=== PATIENT | female | born 2000 | race African-American/Black ===

== ENCOUNTER 2021-05-27 10:46 | Inpatient (IN) | payer OTHER, SELFPAY ==
[2021-05-27] VITALS (171 sets, daily range): BP systolic 86–171; BP diastolic 29–115; PULSE 25–139; RESP 16–18; TEMP 36.6–37.2; O2SAT 76–100; BMI 26.0
--- NOTE | 2021-05-27 11:15 | WPDHPUPDATE1 ---
History and Physical Update Update Date/Time: 05/27/21 11:13 History and Physical has been reviewed, including an updated exam of the patient. There are NO changes in the patient's condition. Risks, benefits, and alternatives have been discussed and questions answered. Patient agrees to proceed with procedure. 21. yo primigravida F presents Spontaneous rupture membranes and spontaneous onset of labor care began September 2020 8 visits complicated by Chlamydia and gonorrhea herpes and group B strep she has been on acyclovir however her last visit was April 28 2021. Ultrasound normal. 1 hour glucose normal. complicated by Sexually transmitted diseases CT, NG,HSV, GBS, smoking, and TV. She is being admitted and routine orders with antibiotic prophylaxis for GBS started an epidural being administered. Yes to circumcise ,breast feeding method,[employer]ounder Angelina MELENDEZ for PPBC,yes to epidural . She understands her condition procedure and risks and agrees to proceed she understands the maternal or indications for delivery with risk involved including but not limited to bleeding infection injury to bladder bowel baby pelvic vessels DVT pneumonia wound infections UTI risk of anesthesia risk of hemorrhage
[2021-05-27 11:44] LABS: Basophils Percent Auto 0.4 % (0.2-1.2); Eosinophils Percent Auto 0.8 % (0-4.4); Hematocrit 31.9 % (37.0-47.0); Hemoglobin 10.1 g/dL (12.0-15.0); Immature Granulocyte Absolute 0.03 K/mm3 (0.00-0.031); Immature Granulocyte Percent A 0.6 % (0-0.5); Lymphocytes Absolute Auto 1.21 K/mm3 (0.9-3.2); Lymphocytes Percent Auto 23.1 % (18.3-44.2); Mean Corpuscular HGB Conc 31.7 g/dl (32-36); Mean Corpuscular Hemoglobin 25.3 pg (26-34); Mean Corpuscular Volume 79.9 fl (80-100); Mean Platelet Volume 9.6 fl (7.4-10.4); Monocytes Absolute Auto 0.6 K/mm3 (0.1-0.6); Monocytes Percent Auto 11.5 % (2.6-8.5); Neutrophils Absolute Auto 3.3 K/mm3 (1.3-6.7); Neutrophils Percent Auto 63.6 % (45.5-73.1); Platelet Count Result 237 k/mm3 (150-375); Red Blood Count 3.99 M/mm3 (4.2-5.4); Red Cell Distribution Width 16.9 % (11.5-14.5); White Blood Count 5.2 K/mm3 (4.5-10.0)
[2021-05-27] MEDS: AMPICILLIN 2 GM/NS 100 ML 2 GM/100 ML BAG IVPB (11:47)
[2021-05-27] MEDS: LACTATED RINGERS 1,000 ML 125 ML IV CONT ×2 (11:48→16:30)
--- NOTE | 2021-05-27 12:12 | LDADM ---
This patient, Yumiko Bautista, was admitted to Labor/Delivery/Recovery 107 on 05/27/21 at 10:47. Plans for labor, pain management and were discussed with patient. Patient/family oriented to hospital policies and general routines including ID bracelet, bed and alarms, visiting hours, pain management, procedures, bathroom and other care routines, personal items, smoking policy, room service/diet and guest tray routines, security routines, and visiting hours. Patient/Family are encouraged to report perceived risks to care and to ask questions if they do not understand what they are told or what they should do. See OBIX for further documentation.
[2021-05-27 12:38] LABS: HIV 1/2 Ab P24 Ag Result Negative (Negative)
[2021-05-27 15:31] LABS: Amphetamine Screen Urine Negative (Negative); Barbiturate Screen Urine Negative (Negative); Benzodiazepines Screen Urine Negative (Negative); Cannabinoid Screen Urine Positive (Negative); Cocaine Screen Urine Negative (Negative); Methadone Screen Urine Negative (Negative); Opiate Screen Urine Negative (Negative); Phencyclidine Screen Urine Negative (Negative)
[2021-05-27] MEDS: AMPICILLIN 1 GM/NS 50 ML 1 GM/50 ML BAG IVPB ×2 (15:42→19:34)
[2021-05-27] MEDS: OXYTOCIN 30 UNITS/NS 500 ML 30 UNITS/500 ML BAG 6 UNITS IV CONT (18:34)
--- NOTE | 2021-05-27 21:03 | P.PCNOB_ITS ---
OB - Delivery Note Procedure Route of delivery: Episiotomy description: None Laceration Description: Vaginal - 1st Degree Delivery repair: chromic Specimen: No Quantitative Blood Loss (ml): 350 Anesthesia type: Epidural Disposition: floor Narrative: Patient prepped and draped in usual manner this procedure. Maternal expulsive efforts readily delivered vertex with nuchal cord x2 noted and reduced. Rest of baby was delivered cord was clamped and cut placenta delivered spontaneously. Uterus was well contracted. Two small vaginal lacerations were readily rendered hemostatic using a ldoevg-[id number] Dawdy chromic suture. Uterus again well contracted minimal bleeding at this point the procedure was considered terminated. [place] Baby Weeks of gestation at delivery: 38 gender: Male Weight (pounds): 6 Weight (ounces): 7 score one minute: 9 score five minutes: 9
[2021-05-27] MEDS: OXYTOCIN 30 UNITS/NS 500 ML 30 UNITS/500 ML BAG 125 UNITS IV CONT (21:53)
--- NOTE | 2021-05-27 23:30 | OBPPTRN ---
Patient transferred to post room #279 via wheelchair. Support person present. Oriented to unit, room, information board, rooming in, admission packet and security measures. Patient verbalizes understanding.
[2021-05-28] MEDS: ACETAMINOPHEN 325 MG TABLET 650 MG PO (01:19)
[2021-05-28] MEDS: IBUPROFEN 600 MG TABLET PO ×3 (01:20→16:35)
[2021-05-28 04:00] VITALS: BP 125/71; PULSE 69; RESP 16; TEMP 36.8; O2SAT 98
[2021-05-28 05:19] LABS: Hematocrit 26.9 % (37.0-47.0); Hemoglobin 8.6 g/dL (12.0-15.0)
--- NOTE | 2021-05-28 07:28 | PM.OBDSVD ---
DS: Admitting Diagnosis Admitting Diagnosis OB - DS: Summary OB Procedures : None OB Procedures Intrapartum: Spontaneous Vag Delivery OB Procedures: : None Time Spent with Patient Time attestation: Total time spent providing and/or coordinating discharge services: DS: Data Data Completed and Pending Labs on day of discharge: Labs from last 24 hours 05/28/21 05/27/21 05/27/21 03:54 15:05 11:37 WBC RBC Hgb 8.6 L Hct 26.9 L MCV MCH MCHC RDW Plt Count MPV Immature Gran % (Auto) Neut % (Auto) Lymph % (Auto) Levy % (Auto) Eos % (Auto) Baso % (Auto) Lymph # (Auto) Levy # (Auto) Eos # (Auto) Baso # (Auto) Abs Immat Gran (auto) Absolute Neuts (auto) Absolute Nucleated RBC Nucleated RBC % Urine Opiates Screen Negative Urine Methadone Screen Negative Ur Barbiturates Screen Negative Ur Phencyclidine Scrn Negative Ur Amphetamine Screen Negative U Benzodiazepines Scrn Negative Urine Cocaine Screen Negative U Cannabinoids Screen Positive A RPR HIV 1&2 Ab/P24 Ag 4thGn Blood Type AB Positive Antibody Screen Negative 05/27/21 05/27/21 05/27/21 11:37 11:37 11:37 WBC 5.2 RBC 3.99 L Hgb 10.1 L Hct 31.9 L MCV 79.9 L MCH 25.3 L MCHC 31.7 L RDW 16.9 H Plt Count 237 MPV 9.6 Immature Gran % (Auto) 0.6 H Neut % (Auto) 63.6 Lymph % (Auto) 23.1 Levy % (Auto) 11.5 H Eos % (Auto) 0.8 Baso % (Auto) 0.4 Lymph # (Auto) 1.21 Levy # (Auto) 0.6 Eos # (Auto) 0.0 Baso # (Auto) 0.0 Abs Immat Gran (auto) 0.03 Absolute Neuts (auto) 3.3 Absolute Nucleated RBC 0.0 Nucleated RBC % 0.0 Urine Opiates Screen Urine Methadone Screen Ur Barbiturates Screen Ur Phencyclidine Scrn Ur Amphetamine Screen U Benzodiazepines Scrn Urine Cocaine Screen U Cannabinoids Screen RPR Pending HIV 1&2 Ab/P24 Ag 4thGn Negative Blood Type Antibody Screen Discharge Plan Discharge Discharging Clinician: Hurford,Collin M. Anticipated Discharge Date/Time: 05/29/21 07:28 Patient Disposition: Home, Self-Care Activity: as tolerated Diet: as tolerated Patient Instructions: Antibiotic Form Stand Alone Forms: General Discharge Information Follow-up/Referrals: Tanvir Willard MD [Physician] - 3 Weeks Discharge Medications: New ibuprofen 600 mg Tablet 600 mg PO Q6H PRN (Reason: Cramping) Qty: 30 RF: 0 Discontinued acyclovir 800 mg tablet 800 mg PO DIRECTED RF: 0 Date of admission: 05/27/21 10:47 Primary Care Provider: PHYSICIAN,LOAN PROCESSOR Admitting Provider: Tanvir Willard Attending physician on admission: Tanvir Willard Condition: Stable
[2021-05-28 07:55] VITALS: BP 137/79; PULSE 62; RESP 18; TEMP 36.6; O2SAT 99
--- NOTE | 2021-05-28 08:09 | WPDANLDPN2 ---
Anes-Prog Note L&D Date/Time: 05/28/21 08:09 Comfortable throughout: labor and delivery Neuraxial method: epidural Epidural/Spinal procedure site: clean & non-tender Neuro status: Neuro function grossly intact. Cardiovascular status: normal Respiratory status: normal Airway patency: baseline Mental status: baseline Post-Op hydration status: normal Vital Signs: Last Vital Signs Temp 36.8 C 05/28/21 04:00 Pulse 69 05/28/21 04:00 Resp 16 05/28/21 04:00 BP 125/71 05/28/21 04:00 Pulse Ox 98 05/28/21 04:00 Pain score (VAS): 0 I/O: Intake & Output 05/27/21 05/28/21 05/28/21 23:59 07:59 15:59 Intake Total 2300 500 Output Total 2275 Balance 25 500 Post-procedural complaints: none Patient feedback: Patient satisfied with anesthetic care.
--- NOTE | 2021-05-28 09:01 | PM.IMHP ---
H&P: [facility] History of Present Illness Date/Time: 05/27/21 11:01 21. yo primigravida F presents Spontaneous rupture membranes and spontaneous onset of labor care began September 2020 8 visits complicated by Chlamydia and gonorrhea herpes and group B strep she has been on acyclovir however her last visit was April 28 2021. noninvasive test normal. Gender male. Ultrasound normal. 1 hour glucose normal. complicated by Sexually transmitted diseases CT, NG,HSV, GBS, smoking, and TV. She is being admitted and routine orders with antibiotic prophylaxis for GBS started an epidural being administered. Yes to circumcise ,breast feeding method,Clipman Angelina MELENDEZ for PPBC,yes to epidural . She understands her condition procedure and risks and agrees to proceed she understands the maternal or indications for delivery with risk involved including but not limited to bleeding infection injury to bladder bowel baby pelvic vessels DVT pneumonia wound infections UTI risk of anesthesia risk of hemorrhage Chief Complaint: term , spontaneous rupture membranes, spontaneous onset of labor Review of Systems Review of Systems: All systems reviewed & are unremarkable except as noted in HPI and below Constitutional: Constitutional: Reports no additional constitutional complaints Eyes: Eyes: Reports no additional eye complaints ENT: Reports system reviewed and no additional complaints, except as documented Cardiovascular: Cardiovascular: Reports no additional cardiovascular complaints Respiratory: Respiratory: Reports no additional respiratory complaints Gastrointestinal: Gastrointestinal: Reports no additional gastrointestinal complaints Genitourinary: Genitourinary: Reports no additional female genitourinary complaints Musculoskeletal: Musculoskeletal: Reports no additional musculoskeletal complaints Integumentary/Breasts: Skin/Breast: Reports system reviewed and no additional complaints, except as docu Neurologic: Reports system reviewed and no additional complaints, except as documented Psychiatric: Psychiatric: Reports no additional psychiatric complaints Endocrine: Endocrine: Reports no additional endocrine complaints Hematologic/Lymphatic: Hematologic/Lymphatic: Reports no additional hematologic/lymphatic complaints Allergic/Immunologic: Allergic/Immunologic: Reports no additional allergic/immunologic complaints [facility] Past Medical History Medical History (Updated 05/28/21 @ 09:23 by Tanvir Willard MD) Anemia Asthma Bacterial vaginosis Candidiasis of vagina Chlamydia Genital herpes simplex Group B streptococcal carriage complicating History of sexually transmitted disease Neisseria gonorrheae Smoker Trichomonas infection Social History Social History (Updated 05/28/21 @ 09:20 by Tanvir Willard MD) Smoking status: Current every day smoker Tobacco type: cigarettes Second hand tobacco smoke exposure: Yes Substance use: current Substance use type: marijuana Living arrangements: with family Occupation/Education: unemployed Gender identity (if verbalized by the patient): Female Sexual Orientation (if Verbalized by the Patient): Straight or Heterosexual Spiritual care concerns: No Agree to blood products: Yes Meds Home Medications and Allergies Home Medications Medication Instructions Recorded Confirmed Type acyclovir 800 mg PO DIRECTED 05/27/21 05/27/21 History Allergies Allergy/AdvReac Type Severity Reaction Status Date / Time No Known Allergies Allergy Verified 05/27/21 11:26 Vital Signs Vital Signs - 24 hr 05/27/21 11:00 05/27/21 11:51 05/27/21 12:01 Temperature 98.3 F Pulse Rate 66 59 L Respiratory Rate Blood Pressure 153/81 H 156/98 H Pulse Oximetry 05/27/21 12:30 05/27/21 12:31 05/27/21 12:42 Temperature 98.1 F Pulse Rate 59 L Respiratory Rate B
[2021-05-28] MEDS: POLYSACCHARIDE IRON COMPLEX 150 MG CAPSULE PO ×2 (10:38→16:35)
[2021-05-28] MEDS: MULTIVIT/MIN/PREN/FOL AC/IRON TABLET 1 TAB PO (10:38)
[2021-05-28] MEDS: DOCUSATE SODIUM 100 MG CAPSULE PO ×2 (10:39→16:35)
[2021-05-28 11:39] LABS: Rapid Plasma Reagin Non-Reactive (NonReactive)
[2021-05-28 12:05] VITALS: BP 135/60; PULSE 67; RESP 18; TEMP 36.3; O2SAT 100
[2021-05-28] MEDS: cefTRIAXone 250 MG VIAL 500 MG IM (12:30)
[2021-05-28] MEDS: AZITHROMYCIN 250 MG TABLET 1000 MG PO (12:32)
[2021-05-28] MEDS: FLUCONAZOLE 150 MG TABLET PO (12:33)
--- NOTE | 2021-05-28 13:08 | PCCCNOTE ---
Care Coordination met with pt. this morning to discuss discharge planning. Pt.'s current D/C plan is to return home with her mother and step father. Pt. states she has local family support and confirms that she has everything she needs to safely bring baby home. Pt. denies any prior DCFS cases. She did test positive for Marijuana at time of admission, baby's meconium is pending. Pt. informed CC that she used Marijuana throughout her to assist with her nausea and lack of appetite. CC has reported the drug use to [facility] online, pt.'s case ID number is [id number]. They will take it as information. No further need for CC services at this time.
--- NOTE | 2021-05-28 15:14 | P.PNOB_ITS ---
OB - PN: Subj Subjective Date/time seen: 05/28/21 15:14 Patient comments: no complaints and pain well controlled baby status: doing well [place] feeding status: breast and bottle feeding OB - PN: Obj Data Labs CBC & Chem 7: 05/28/21 03:54 Labs: Laboratory Results - last 24 hr 05/27/21 05/27/21 05/28/21 11:37 15:05 03:54 Hgb 8.6 L Hct 26.9 L Urine Opiates Screen Negative Urine Methadone Screen Negative Ur Barbiturates Screen Negative Ur Phencyclidine Scrn Negative Ur Amphetamine Screen Negative U Benzodiazepines Scrn Negative Urine Cocaine Screen Negative U Cannabinoids Screen Positive A RPR Non-reactive OB - PN A/P Assessment and Plan (1) Term delivered: Code(s): O80 - Encounter for full-term uncomplicated delivery Status: Acute Plan day: 1 Plan: routine care, discharge home and follow up 6 weeks Time Spent With Patient Time: Total time spent is greater than 50% in coordination of care (as documented) at patient's floor/unit and/or counseling patient: Time with patient: less than 15 minutes Review of Systems Review of Systems: All systems reviewed & are unremarkable except as noted in HPI and below Exam Const: General: cooperative, healthy appearing, comfortable, no acute distress, well developed, awake and Physically active Nutritional Appearance: average body habitus Orientation/consciousness: patient oriented x3 Limitations: no limitations HENMT: Head: normal to inspection Eyes: General: appearance normal, both eyes and all related structures Neck: Neck: normal visual inspection Chest: Chest palpation & inspection: normal inspection of the chest Resp: Effort & Inspection: normal respiratory effort Auscultation: clear to auscultation bilaterally Cardio: Rate: regular rate Rhythm: regular rhythm GI: Inspection: normal to inspection GI Palp: Yes Soft to palpation Auscultation: normal bowel sounds : External Female Exam: normal external appearance Back/Spine/Pelvis: Back: no CVA tenderness Skin: General skin exam: normal color Neuro: General: patient oriented x3, gait normal, tone normal, moves all extremities and Normal light touch and pain sensation Extrem: General: normal to inspection and full ROM Psych: Appearance: grossly normal Mental Status: mental status grossly normal Speech and movement: Normal speech and movement present Affect: n ormal affect Attitude: cooperative Thought process: Normal thought process present Thought content: Yes Normal thought content present Insight: Good insight present (Psych) Judgement: Good judgement present (Psych)
[2021-05-28 16:00] VITALS: BP 137/85; PULSE 63; RESP 16; TEMP 36.3; O2SAT 100
[2021-05-28 20:00] VITALS: BP 114/69; PULSE 64; RESP 16; TEMP 36.7; O2SAT 99
[2021-05-28] MEDS: metroNIDAZOLE 70 GM VAG GEL.W.APPL 1 APPFUL VAGINAL (20:41)
--- NOTE | 2021-05-29 08:00 | PC.NURSE ---
PT introductions made and plan of care discussed per post , pain management, bottle feeding, daily care activities and pending discharge to home. PT verbalized understanding of such care. PT received instructions per one to one and demonstration and mom baby care guide book through out this shift. PT only recipient of instructions and no barriers to learning identified.
[2021-05-29] MEDS: DOCUSATE SODIUM 100 MG CAPSULE PO (08:48)
[2021-05-29 08:49] VITALS: BP 122/71; PULSE 62; RESP 18; TEMP 36.6; O2SAT 100
[2021-05-29] MEDS: IBUPROFEN 600 MG TABLET PO (08:49)
[2021-05-29] MEDS: MULTIVIT/MIN/PREN/FOL AC/IRON TABLET 1 TAB PO (08:49)
[2021-05-29] MEDS: POLYSACCHARIDE IRON COMPLEX 150 MG CAPSULE PO (08:49)
--- NOTE | 2021-05-29 09:02 | PM.OBDSVD ---
DS: Admitting Diagnosis Admitting Diagnosis (1) Term : Code(s): Z34.90 - Encounter for supervision of normal , unspecified, unspecified trimester Status: Acute (2) Spontaneous rupture of membranes: Status: Acute (3) Spontaneous onset of labor: Status: Acute (4) Group B streptococcal carriage complicating : Code(s): O99.820 - Streptococcus B carrier state complicating Status: Acute (5) Genital herpes simplex: Code(s): A60.00 - Herpesviral infection of urogenital system, unspecified Status: Acute (6) Anemia: Code(s): D64.9 - Anemia, unspecified Status: Acute (7) History of sexually transmitted disease: Code(s): Z86.19 - Personal history of other infectious and parasitic diseases Status: Acute (8) Smoker: Code(s): F17.200 - Nicotine dependence, unspecified, uncomplicated Status: Acute DS: Discharge Diagnosis Discharge Diagnosis (1) Term delivered: Code(s): O80 - Encounter for full-term uncomplicated delivery Status: Acute (2) Spontaneous rupture of membranes: Status: Acute (3) Spontaneous onset of labor: Status: Acute (4) History of sexually transmitted disease: Code(s): Z86.19 - Personal history of other infectious and parasitic diseases Status: Acute (5) Group B streptococcal carriage complicating : Code(s): O99.820 - Streptococcus B carrier state complicating Status: Acute (6) Smoker: Code(s): F17.200 - Nicotine dependence, unspecified, uncomplicated Status: Acute (7) Anemia: Code(s): D64.9 - Anemia, unspecified Status: Acute (8) Genital herpes simplex: Code(s): A60.00 - Herpesviral infection of urogenital system, unspecified Status: Acute OB - DS: Summary Hospital Course Time spent discussing smoking cessation with patient: 3 to 10 minutes OB Procedures : Ultrasound OB Procedures Intrapartum: Spontaneous Vag Delivery OB Procedures: : None Peripartum Data Delivery Method: Natural Vaginal Laceration Description: None Episiotomy description: None complications: none 1: Gender: Male Disposition of : home Status at Discharge Cognitive/behavioral status at discharge: normal Functional status at discharge: independent ambulation Overall status at discharge: patient is back to baseline Time Spent with Patient Time attestation: Total time spent providing and/or coordinating discharge services: Time spent: Less than 30 minutes Exam Const: General: cooperative, healthy appearing, comfortable, no acute distress, well developed, alert, awake and Physically active Nutritional Appearance: average body habitus Orientation/consciousness: patient oriented x3 Limitations: no limitations HENMT: Head: normal to inspection Eyes: General: appearance normal, both eyes and all related structures Neck: Neck: normal visual inspection Chest: Chest palpation & inspection: normal inspection of the chest Resp: Effort & Inspection: normal respiratory effort Auscultation: clear to auscultation bilaterally Cardio: Rate: regular rate Rhythm: regular rhythm GI: Inspection: normal to inspection GI Palp: Yes Soft to palpation Auscultation: normal bowel sounds : External Female Exam: normal external appearance Bimanual exam- vagina & uterus: non-tender Back/Spine/Pelvis: Back: no CVA tenderness Skin: General skin exam: normal color Neuro: General: patient oriented x3, gait normal, tone normal and moves all extremities Extrem: General: normal to inspection and full ROM Psych: Appearance: grossly normal Mental Status: mental status grossly normal Speech and movement: Normal speech and movement present Affect: normal affect Attitude: cooperative Thought process: Normal thought process present Thought content: Yes No
--- NOTE | 2021-05-29 11:00 | PC.NURSE ---
PT received discharge instructions per protocol and verbalized understanding of such care.
--- NOTE | 2021-05-29 11:30 | PC.NURSE ---
PT discharged to home ambulatory accompanied by infant and taken to waiting car. Follow up appts confirmed
--- NOTE | 2021-06-02 12:16 | P.DS_ITS ---
DS: Admitting Diagnosis Admitting Diagnosis OB - DS: Summary OB Procedures : None OB Procedures Intrapartum: Spontaneous Vag Delivery OB Procedures: : None Time Spent with Patient Time attestation: Total time spent providing and/or coordinating discharge services: Discharge Plan Discharge Attending physician on discharge: Tanvir Willard Discharging Clinician: Tanvir Willard Anticipated Discharge Date/Time: 05/29/21 07:28 Patient Disposition: Home, Self-Care Activity: unlimited, may drive after 2 weeks and as tolerated Diet: as tolerated and regular Wound Care Instructions: follow printed instructions Discharge Instructions: Education: Mom and Baby Guide Given to: Mother Follow-Up: Call your delivering provider's office for an appointment to be seen in: 3 weeks Mom and baby should come to the [facility] for the follow-up appointment. Appointment Date/Time: May 31, 2021 at 9:00 am What to expect at your follow-up visit: Blood Pressure Check Call [phone] if you are unable to keep your appointment time. BREAST CARE: * Wear a snug supportive bra. * For engorgement discomfort: Bottle Feeding: * May apply ice packs PERINEAL CARE: * Until bleeding stops, use your tra bottle after urinating * Change your pad frequently throughout the day * You may take sitz baths several times a day (fill your bathtub with warm water and soak for 20 minutes.) Do NOT bathe in the water * No tub baths until seen by your physician - You may shower ACTIVITY: * Rest as much as possible. * Do not exercise or lift anything heavier than your baby (such as laundry or other children.) * Avoid stairs or driving as much as possible. * Do not put anything into the vagina. No douching, tampons, or sexual activity until seen by physician. NOTIFY PHYSICIAN IF YOU HAVE ANY QUESTIONS OR IF ANY OF THE FOLLOWING SYMPTOMS OCCUR: * If your perineum becomes red, swollen, or more painful than what you have experienced in the hospital. * If your vaginal bleeding becomes foul smelling. * If your vaginal bleeding becomes more heavy than a period or if your bleeding changes from pink to bright red. However, you may pass an occasional walnut-si zed clot once or twice for the first week . * If you experience a sharp, shooting pain in you calves. * If you discover a hard, reddened area on your breast or if you experience flu- like symptoms. * If you have a fever of 100.4 or greater DIET: * Eat regular, well-balanced meals. * Drink plenty of fluids daily. If , drink to thirst. Patient Instructions: Antibiotic Form Stand Alone Forms: General Discharge Information Follow-up/Referrals: Tanvir Willard MD [Physician] - 3 Weeks Discharge Medications: New ibuprofen 600 mg Tablet 600 mg PO Q6H PRN (Reason: Cramping) Qty: 30 RF: 0 Continued acyclovir 800 mg tablet 800 mg PO DIRECTED RF: 0 Date of admission: 05/27/21 10:47 Primary Care Provider: PHYSICIAN,[employer] SKILLED MAINTENANCE SUPERVISOR Admitting Provider: Tanvir Willard Attending physician on admission: Collin Machuca Condition: Stable
== END 2021-05-29 11:30 | disposition home or self-care (01) | DRG 560 ==
LOC: ANHLDR 11:07 → ANHOB2 05-28 07:28 → ANHLDR 05-31 11:47 → ANHOB2 05-31 11:47
PROVIDERS: Admitting Provider Obstetrics & Gynecology; Visit Provider Obstetrics & Gynecology
DX: O99.824 Streptococcus B carrier state complicating childbirth (principal); Z37.0 Single live birth; Z3A.38 38 weeks gestation of pregnancy; O70.0 First degree perineal laceration during delivery; O69.81X0 Labor and delivery complicated by cord around neck, without compression, not applicable or unspecified; O98.32 Other infections with a predominantly sexual mode of transmission complicating childbirth; A56.8 Sexually transmitted chlamydial infection of other sites; O98.22 Gonorrhea complicating childbirth; A60.09 Herpesviral infection of other urogenital tract; O99.02 Anemia complicating childbirth; D64.9 Anemia, unspecified; O99.52 Diseases of the respiratory system complicating childbirth; J45.909 Unspecified asthma, uncomplicated; O99.334 Smoking (tobacco) complicating childbirth; F17.210 Nicotine dependence, cigarettes, uncomplicated
CPT/HCPCS: 36415; 80307; 84112; 85014; 85018; 85025; 86592; 86703; 86850; 86900; 86901; A9270; G0432; J0290; J0696; J2590; J2795; J7120